=== PATIENT | female | born 1990 | race Caucasian/White ===

== ENCOUNTER 2017-06-13 10:35 | Inpatient (IN) ==
[2017-06-13] MEDS ORDERED: hydrOXYzine pamoate 25 MG CAPSULE PO PRN (10:47)
[2017-06-13] MEDS ORDERED: MOM Conc 10 ML UD.LIQ PO PRN (10:47)
[2017-06-13] MEDS ORDERED: Haloperidol Lactate 5 MG/ML VIAL IM PRN ×2 (10:47→11:02)
[2017-06-13] MEDS ORDERED: *HR* LORazepam 2 MG/ML VIAL IM PRN ×2 (10:47→11:03)
[2017-06-13] MEDS ORDERED: *HR* LORazepam 1 MG TABLET PO PRN ×2 (10:47→11:07)
[2017-06-13] MEDS ORDERED: Ibuprofen 400 MG TABLET PO PRN (10:47)
[2017-06-13] MEDS ORDERED: Mag Hydrox/Al Hydrox/Simeth 30 ML UDC PO PRN (10:47)
[2017-06-13] MEDS: Loratadine 10 MG TABLET PO SCH (11:51)
[2017-06-13] MEDS: clonazePAM 1 MG TABLET PO SCH (11:51)
[2017-06-13] MEDS: Divalproex (12 HR) 500 MG TABLET PO SCH ×2 (11:51→21:06)
[2017-06-13] MEDS: Topiramate 100 MG TABLET PO SCH ×2 (11:51→21:06)
[2017-06-13] MEDS: Multivit/Ca/Min/Fe/FA 1 TAB TABLET PO SCH (11:51)
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
[2017-06-13] MEDS: DESOGESTREL ETHINYL ESTRADIOL PO SCH (15:19)
[2017-06-13] MEDS: Cholecalciferol (D-3) 1,000 UNIT TABLET PO SCH (21:06)
[2017-06-13] MEDS: Ziprasidone 20 MG CAPSULE PO SCH (21:06)
[2017-06-14] MEDS: Divalproex (12 HR) 500 MG TABLET PO SCH ×2 (08:49→20:41)
[2017-06-14] MEDS: Loratadine 10 MG TABLET PO SCH (08:49)
[2017-06-14] MEDS: Folic Acid 1 MG TABLET PO SCH (08:49)
[2017-06-14] MEDS: Multivit/Ca/Min/Fe/FA 1 TAB TABLET PO SCH (08:49)
[2017-06-14] MEDS: clonazePAM 0.5 MG TABLET PO SCH (08:49)
[2017-06-14] MEDS: Topiramate 100 MG TABLET PO SCH ×2 (08:49→20:41)
[2017-06-14] MEDS: Ziprasidone 20 MG CAPSULE PO SCH ×2 (08:50→20:40)
[2017-06-14] MEDS: DESOGESTREL ETHINYL ESTRADIOL PO SCH (08:54)
--- NOTE | 2017-06-14 11:21 | Psychiatry Progress Note ---
Date of Encounter: 06/14/17 Time of Encounter: 10:00 Subjective Interval history: Patient was seen any activity for follow-up. Staff reports she is compliant with medication and cooperative, no agitation episode. She she had a good night 's sleep. She demands and snacks frequently and enjoy watching video and TV. No evidence of internal stimulation or hallucinations, nor report of self mutilating behavior. Review of Systems Psychiatric: Reports: irritability, mood swings, other (Agitation, assaultive behavior, self mutilating behavior) Objective: Exam Patient orientation: Yes Person, Yes Time, Yes Place Level of alertness: Alert Patient appearance: Appropriate, Well Groomed, Obese Behavior: calm, cooperative Psychomotor activity: Normal Eye contact: Minimal Contact Mood description: Euthymic/stable, Anxious Affect description: congruent with mood, labile Speech pattern: Normal rate, Normal rhythm, Normal tone, Limited, Impoverished Speech volume: Normal Thought process: Linear, Goal Oriented Thought content: No Suicidal ideation, No Homicidal ideation, No Overt delusions Perceptual disturbances: No Auditory hallucinations, No Visual hallucinations Judgment: Fair Insight: Partial Results - Vital Signs Vital Signs: Temp Pulse Resp BP 97.3 F L 79 16 106/76 06/14/17 09:00 06/14/17 09:00 06/14/17 09:00 06/14/17 09:00 - Labs Labs: Laboratory Results - last 24 hr 06/13/17 11:48 Valproic Acid 46.57 L Assessment and Plan (1) Schizophrenia, disorganized, chronic Current visit: Yes Status: Acute Plan: Continue hospitalization, Close observation, Suicide Precautions per unit protocol, Encourage participation in unit milieu, Group Therapy, Monitor sleep, Monitor appetite Risks, benefits, side effects, alternatives discussed w/pt: Yes Patient agreeable to treatment: Yes (2) Disability, developmental Current visit: Yes Status: Acute Plan: Continue hospitalization, Close observation, Suicide Precautions per unit protocol, Encourage participation in unit milieu, Group Therapy, Monitor sleep, Monitor appetite Risks, benefits, side effects, alternatives discussed w/pt: Yes Patient agreeable to treatment: Yes
[2017-06-14] MEDS: clonazePAM 1 MG TABLET PO SCH (12:54)
[2017-06-14] MEDS: Cholecalciferol (D-3) 1,000 UNIT TABLET PO SCH (20:42)
[2017-06-15] MEDS: Topiramate 100 MG TABLET PO SCH ×2 (08:42→20:13)
[2017-06-15] MEDS: Divalproex (12 HR) 500 MG TABLET PO SCH ×2 (08:45→20:14)
[2017-06-15] MEDS: Loratadine 10 MG TABLET PO SCH (08:49)
[2017-06-15] MEDS: Ziprasidone 20 MG CAPSULE PO SCH ×2 (08:50→20:14)
[2017-06-15] MEDS: clonazePAM 0.5 MG TABLET PO SCH (08:50)
[2017-06-15] MEDS: Multivit/Ca/Min/Fe/FA 1 TAB TABLET PO SCH (08:50)
[2017-06-15] MEDS: Folic Acid 1 MG TABLET PO SCH (08:51)
[2017-06-15] MEDS: DESOGESTREL ETHINYL ESTRADIOL PO SCH (09:12)
--- NOTE | 2017-06-15 10:37 | Psychiatry Progress Note ---
Date of Encounter: 06/15/17 Time of Encounter: 10:25 Subjective Interval history: Patient seen today , chart reviewed and case d/w treatment team. as per team patient is compliant , cooperative , no agitation and slept well. patient has h/o Schizophrenia and developmental delay . follow up inpatient ,as per patient i am ok , i am happy , she is denying any side effects, appetite good. waiting for probate hearing today. Review of Systems Psychiatric: Reports: irritability, mood swings, other (Agitation, assaultive behavior, self mutilating behavior) Objective: Exam Patient orientation: Yes Person, Yes Time, Yes Place Level of alertness: Alert Patient appearance: Appropriate Behavior: calm, cooperative Psychomotor activity: Normal Eye contact: Maintains Eye Contact Mood description: Euthymic/stable Affect description: constricted Speech pattern: Slowed Speech volume: Normal Thought process: [place] Thought content: Yes Preoccupation Judgment: Poor Insight: None Results - Vital Signs Vital Signs: Temp Pulse Resp BP 97 F L 93 18 104/76 06/15/17 09:00 06/15/17 09:00 06/15/17 09:00 06/15/17 09:00 Assessment and Plan (1) Schizophrenia, disorganized, chronic Current visit: Yes Status: Acute Plan: Continue hospitalization, Close observation, Suicide Precautions per unit protocol, Encourage participation in unit milieu, Group Therapy, Monitor sleep, Monitor appetite, Family/Supportive other meeting Additional Plan: continue medication and supportive enviornment. Risks, benefits, side effects, alternatives discussed w/pt: Yes Patient agreeable to treatment: Yes (2) Disability, developmental Current visit: Yes Status: Chronic Plan: Continue hospitalization, Close observation, Suicide Precautions per unit protocol, Encourage participation in unit milieu, Group Therapy, Monitor sleep Risks, benefits, side effects, alternatives discussed w/pt: Yes Patient agreeable to treatment: Yes
[2017-06-15] MEDS: clonazePAM 1 MG TABLET PO SCH (11:39)
[2017-06-15] MEDS: Cholecalciferol (D-3) 1,000 UNIT TABLET PO SCH (20:14)
[2017-06-16] MEDS: Topiramate 100 MG TABLET PO SCH ×2 (08:17→21:24)
[2017-06-16] MEDS: Ziprasidone 20 MG CAPSULE PO SCH ×2 (08:17→21:24)
[2017-06-16] MEDS: Divalproex (12 HR) 500 MG TABLET PO SCH ×2 (08:18→21:23)
[2017-06-16] MEDS: clonazePAM 0.5 MG TABLET PO SCH (08:18)
[2017-06-16] MEDS: Multivit/Ca/Min/Fe/FA 1 TAB TABLET PO SCH (08:18)
[2017-06-16] MEDS: Loratadine 10 MG TABLET PO SCH (08:18)
[2017-06-16] MEDS: Folic Acid 1 MG TABLET PO SCH (08:18)
[2017-06-16] MEDS: DESOGESTREL ETHINYL ESTRADIOL PO SCH (08:55)
[2017-06-16] MEDS: clonazePAM 1 MG TABLET PO SCH (13:35)
--- NOTE | 2017-06-16 13:42 | Psychiatry Progress Note ---
Date of Encounter: 06/16/17 Time of Encounter: 13:30 Subjective Interval history: Patient seen today case d/w treatment team and staff. patient has been compliant , no agitation , compliant with her medications and denies side effects. I saw my mom yesterday and she bought me clothes. I am good. states slept good, appetite is good and moods are fine. awaiting placement. Review of Systems Psychiatric: Reports: irritability, mood swings, other (Agitation, assaultive behavior, self mutilating behavior) Objective: Exam Patient orientation: Yes Person, Yes Time, Yes Place Level of alertness: Alert Patient appearance: Appropriate Behavior: calm, cooperative Psychomotor activity: Slowed Eye contact: Maintains Eye Contact Mood description: Euthymic/stable Affect description: constricted Speech pattern: Slowed Speech volume: Normal Thought process: [place] Thought content: Yes Intact Judgment: Limited Insight: Minimal Results - Vital Signs Vital Signs: Temp Pulse Resp BP 97.6 F 16 16 107/87 06/16/17 09:50 06/16/17 09:50 06/15/17 19:51 06/16/17 09:50 Assessment and Plan (1) Schizophrenia, disorganized, chronic Current visit: Yes Status: Acute Risks, benefits, side effects, alternatives discussed w/pt: Yes Patient agreeable to treatment: Yes (2) Disability, developmental Current visit: Yes Status: Chronic Risks, benefits, side effects, alternatives discussed w/pt: Yes Patient agreeable to treatment: Yes
[2017-06-16] MEDS: Cholecalciferol (D-3) 1,000 UNIT TABLET PO SCH (21:24)
[2017-06-17] MEDS: Divalproex (12 HR) 500 MG TABLET PO SCH ×2 (09:02→20:54)
[2017-06-17] MEDS: Topiramate 100 MG TABLET PO SCH ×2 (09:02→20:54)
[2017-06-17] MEDS: Folic Acid 1 MG TABLET PO SCH (09:02)
[2017-06-17] MEDS: Loratadine 10 MG TABLET PO SCH (09:02)
[2017-06-17] MEDS: clonazePAM 0.5 MG TABLET PO SCH (09:02)
[2017-06-17] MEDS: DESOGESTREL ETHINYL ESTRADIOL PO SCH (09:03)
[2017-06-17] MEDS: Multivit/Ca/Min/Fe/FA 1 TAB TABLET PO SCH (09:03)
[2017-06-17] MEDS: Ziprasidone 20 MG CAPSULE PO SCH ×2 (09:03→20:54)
--- NOTE | 2017-06-17 10:12 | Psychiatry Progress Note ---
Date of Encounter: 06/17/17 Time of Encounter: 10:00 Subjective Interval history: Patient seen today , case d/w staff and treatment team, patient remains same compliant with medications and no agitation or other behaviours noted. slept well last night, appetite is good. I had breakfast , i had pancakes and sausage , i like it. she is feeling good, denies side effects, states i am not upset , i am fine. Patient has development delay . she will be dc tommorow as she is at baseline , once her placement is determined. she is on 2 antipsychotics and depakote , her level was low on 06/13 , will repeat again , AIMS 0 Review of Systems Psychiatric: Reports: irritability, mood swings, other (Agitation, assaultive behavior, self mutilating behavior) Objective: Exam Patient orientation: Yes Person, Yes Time, Yes Place Level of alertness: Alert Patient appearance: Unkempt Behavior: calm, cooperative Psychomotor activity: Slowed Eye contact: Minimal Contact Mood description: Euthymic/stable Affect description: constricted, blunted Speech pattern: Slowed Speech volume: Soft/Quiet Thought content: Yes Preoccupation Judgment: Poor Insight: Minimal Results - Vital Signs Vital Signs: Temp Pulse Resp BP 98.2 F 78 16 112/82 06/16/17 20:42 06/16/17 20:42 06/16/17 20:42 06/16/17 20:42 Assessment and Plan (1) Schizophrenia, disorganized, chronic Current visit: Yes Status: Acute Risks, benefits, side effects, alternatives discussed w/pt: Yes Patient agreeable to treatment: Yes (2) Disability, developmental Current visit: Yes Status: Chronic Risks, benefits, side effects, alternatives discussed w/pt: Yes Patient agreeable to treatment: Yes Consult Discharge Plan - Plan Referrals: NONE,PCP [Primary Care Provider] -
[2017-06-17] MEDS: clonazePAM 1 MG TABLET PO SCH (11:58)
[2017-06-17] MEDS: Cholecalciferol (D-3) 1,000 UNIT TABLET PO SCH (20:54)
[2017-06-18] MEDS: Topiramate 100 MG TABLET PO SCH (08:57)
[2017-06-18] MEDS: clonazePAM 0.5 MG TABLET PO SCH (08:57)
[2017-06-18] MEDS: Multivit/Ca/Min/Fe/FA 1 TAB TABLET PO SCH (08:58)
[2017-06-18] MEDS: Loratadine 10 MG TABLET PO SCH (08:58)
[2017-06-18] MEDS: Folic Acid 1 MG TABLET PO SCH (08:58)
[2017-06-18] MEDS: Ziprasidone 20 MG CAPSULE PO SCH (08:59)
[2017-06-18] MEDS: Divalproex (12 HR) 500 MG TABLET PO SCH (08:59)
[2017-06-18 10:12] VITALS: BP 105/78
[2017-06-18] MEDS: DESOGESTREL ETHINYL ESTRADIOL PO SCH (10:23)
[2017-06-18] MEDS: clonazePAM 1 MG TABLET PO SCH (11:23)
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
== END 2017-06-18 17:10 | disposition other institution (70) | DRG 750 ==
LOC: 1ANU 10:35 → SUATTDRO 10:35
PROVIDERS: ADMIT Psychiatry & Neurology Psychiatry; ATTEND Psychiatry & Neurology Psychiatry